=== PATIENT | female | born 1930 | race Caucasian/White ===

== ENCOUNTER 2017-02-10 17:19 | Inpatient (IN) | payer MEDICARE, BC ==
[~2017-02-10] VITALS: Ht 175.3 cm; Wt 52.3 kg
[~2017-02-10 17:19] MED LIST: ALEVE 220MG220 MG PO; ASPIRIN 81M81 MG/TA2 PO; CALCIUM WITH D1 CTB PO; DITROPAN 5MG TAB5 MG PO; FISH OIL O1600 MG/5 PO; LEVOXYL0.075 MG PO; LEXAPRO 10MG10 MG PO; LIPITOR20 MG PO; MELATONIN3 MG PO; OCUVITE1 TA1 PO; SENNA8.6 MG PO
[2017-02-10 18:46] LABS: BASO % 0.4 % (0.0-2.0); EOS # 0.1 (0.0-0.7); EOS % 0.5 % (0-4.0); GRAN # 8.2 (1.4-6.5); GRAN % 81.6 % (42.2-75.2); HEMATOCRIT 45.9 % (37.0-47.0); HEMOGLOBIN 15.5 g/dl (12.5-16.0); LYMPH # 1.1 (1.2-3.4); LYMPH % 10.6 % (20.0-51.0); MEAN CELL VOLUME 95 fl (80.0-100.0); MEAN CORPUSCULAR HEMOGLOBIN 32 pg (27.0-31.0); MEAN CORPUSCULAR HGB CONC 34 g/dl (33.0-37.0); MEAN PLATELET VOLUME 10.2 fl (7.4-10.4); MONO # 0.6 (0.1-0.6); MONO % 6.3 % (1.7-9.3); PLATELET COUNT 197 K/mm3 (130-400); RED BLOOD COUNT 4.84 M/mm3 (4.10-5.30); REDCELL DISTRIBUTION WIDTH-CV 13.2 % (11.5-14.5)
[2017-02-10 18:56] LABS: ADJUSTED CALCIUM 9.5 mg/dL (8.4-10.2); ALBUMIN 3.8 gm/dL (3.5-5.0); BILIRUBIN,TOTAL 1.3 mg/dL (0.0-1.0); CALCIUM 9.3 mg/dL (8.4-10.2); CREATININE, serum 0.81 mg/dL (0.52-1.25); POTASSIUM 4.1 mmol/L (3.4-5.0); TOTAL PROTEIN 6.8 gm/dL (6.4-8.2)
[2017-02-10] MEDS ORDERED: MIRALAX PA17 GM/Dose PO (22:18)
[2017-02-10] MEDS ORDERED: FOSAMAX 70MG TA70 MG PO (22:20)
[2017-02-10 22:40] VITALS: BP 93/61; PULSE 89; TEMP 97.8
[2017-02-10 23:36] LABS: TROPONIN-I 0.015 ng/mL (0.000-0.034)
[2017-02-11] VITALS (7 sets, daily range): BP systolic 93–142; BP diastolic 33–110; PULSE 83–100; TEMP 97.6–99
[2017-02-11 05:38] LABS: ARTERIAL BLD GAS O2 SATURATION 91.2 % (92-100); ARTERIAL BLD GAS TCO2 CT 23.3; ARTERIAL BLOOD GAS BASE EXCESS -4.7 (-2-2); ARTERIAL BLOOD GAS HCO3 21.9 meq/L (22-26); ARTERIAL BLOOD GAS PO2 66.9 mmHg (80-100); OXYHEMOGLOBIN 90.1 %
[2017-02-11 05:39] LABS: ALLEN TEST YES; ALLENS TEST RESULT PASS; ATS? YES
[2017-02-11 08:10] LABS: ALBUMIN 3.3 gm/dL (3.5-5.0); BILIRUBIN,TOTAL 1.2 mg/dL (0.0-1.0); CALCIUM 8.4 mg/dL (8.4-10.2); CREATININE, serum 0.88 mg/dL (0.52-1.25); POTASSIUM 4.2 mmol/L (3.4-5.0); TOTAL PROTEIN 6.1 gm/dL (6.4-8.2)
[2017-02-11 08:12] LABS: BASO # 0.1 (0.0-0.2); BASO % 0.7 % (0.0-2.0); EOS # 0.1 (0.0-0.7); EOS % 1.2 % (0-4.0); GRAN # 8.2 (1.4-6.5); GRAN % 75.8 % (42.2-75.2); HEMATOCRIT 42.9 % (37.0-47.0); HEMOGLOBIN 14.1 g/dl (12.5-16.0); LYMPH # 1.3 (1.2-3.4); LYMPH % 12.2 % (20.0-51.0); MEAN CELL VOLUME 98 fl (80.0-100.0); MEAN CORPUSCULAR HEMOGLOBIN 32 pg (27.0-31.0); MEAN CORPUSCULAR HGB CONC 33 g/dl (33.0-37.0); MEAN PLATELET VOLUME 10.6 fl (7.4-10.4); MONO # 1.1 (0.1-0.6); MONO % 9.8 % (1.7-9.3); PLATELET COUNT 177 K/mm3 (130-400); REDCELL DISTRIBUTION WIDTH-CV 13.5 % (11.5-14.5); WHITE BLOOD COUNT 10.9 K/mm3 (4.8-10.8)
[2017-02-11 08:23] LABS: TROPONIN-I 0.069 ng/mL (0.000-0.034)
[2017-02-11] MEDS ORDERED: MELAT3MGTAB (10:18)
[2017-02-11 12:10] LABS: PH 5 (5-8); URINE APPEARANCE Clear; URINE BACTERIA None Seen /hpf; URINE BILIRUBIN Negative (NEGATIVE); URINE BLOOD 3+ (NEGATIVE); URINE COLOR Yellow; URINE GLUCOSE Negative (NEGATIVE); URINE KETONE Negative (NEGATIVE); URINE UROBILINOGEN Negative (NEGATIVE)
[2017-02-12 02:12] VITALS: BP 132/48; PULSE 81; TEMP 97.8
[2017-02-12 02:39] LABS: TROPONIN-I 0.042 ng/mL (0.000-0.034)
[2017-02-12 05:18] VITALS: BP 138/49; PULSE 77; TEMP 98
[2017-02-12 10:00] VITALS: BP 117/54; PULSE 87; TEMP 98.3
[2017-02-12 12:34] LABS: BASO # 0.1 (0.0-0.2); BASO % 0.7 % (0.0-2.0); EOS # 0.2 (0.0-0.7); EOS % 3.1 % (0-4.0); GRAN # 5.6 (1.4-6.5); GRAN % 73.2 % (42.2-75.2); LYMPH % 12.4 % (20.0-51.0); MEAN CELL VOLUME 99 fl (80.0-100.0); MEAN CORPUSCULAR HGB CONC 32 g/dl (33.0-37.0); MEAN PLATELET VOLUME 10.4 fl (7.4-10.4); MONO # 0.8 (0.1-0.6); MONO % 10.2 % (1.7-9.3); PLATELET COUNT 153 K/mm3 (130-400); RED BLOOD COUNT 3.62 M/mm3 (4.10-5.30); REDCELL DISTRIBUTION WIDTH-CV 13.5 % (11.5-14.5); WHITE BLOOD COUNT 7.7 K/mm3 (4.8-10.8)
[2017-02-12 12:35] LABS: HEMATOCRIT 35.9 % (37.0-47.0); HEMOGLOBIN 11.5 g/dl (12.5-16.0); MEAN CORPUSCULAR HEMOGLOBIN 32 pg (27.0-31.0)
[2017-02-12 12:43] LABS: CALCIUM 8.2 mg/dL (8.4-10.2); CREATININE, serum 0.67 mg/dL (0.52-1.25); POTASSIUM 3.8 mmol/L (3.4-5.0)
[2017-02-12 14:20] VITALS: BP 114/50; PULSE 85; TEMP 97.9
[2017-02-12 18:15] VITALS: BP 133/53; PULSE 78; TEMP 98.1
[2017-02-12 22:00] VITALS: BP 128/50; PULSE 89; TEMP 98.5
[2017-02-13 02:00] VITALS: BP 134/43; PULSE 76; TEMP 98
[2017-02-13 05:46] VITALS: BP 142/45; PULSE 72; TEMP 98
[2017-02-13 10:01] VITALS: BP 104/42; PULSE 77; TEMP 97.5
[2017-02-13 15:42] VITALS: BP 122/57; PULSE 95; TEMP 98.1
[2017-02-14] MEDS ORDERED: NORCO 325 MG-51 TAB PO (13:20)
[2017-02-14] MEDS ORDERED: ULTRAM 50MG TAB50 MG PO (13:21)
[2017-02-14] MEDS ORDERED: KEPPRA 500MG500 MG PO (13:23)
== END 2017-02-14 16:02 | disposition hospice, home (50) | DRG 180 ==
LOC: COL.ER 17:19 → SURG 19:30
PROVIDERS: Family Medicine; Internal Medicine
DX: C34.11 Malignant neoplasm of upper lobe, right bronchus or lung (principal); J96.01 Acute respiratory failure with hypoxia; C79.31 Secondary malignant neoplasm of brain; S42.352A Displaced comminuted fracture of shaft of humerus, left arm, initial encounter for closed fracture; I71.4 Abdominal aortic aneurysm, without rupture; Z51.5 Encounter for palliative care; Z66 Do not resuscitate; E03.9 Hypothyroidism, unspecified; J43.9 Emphysema, unspecified; E78.5 Hyperlipidemia, unspecified; Z96.653 Presence of artificial knee joint, bilateral; Z87.891 Personal history of nicotine dependence; W18.09XA Striking against other object with subsequent fall, initial encounter
CPT/HCPCS: 99223-AI; 99232-AI; 99233-AI; 99239; A4315; A9585; J1170; J1650; J2405; J2543; J7030; J7050; Q9967